=== PATIENT | male | born 1960 | race Caucasian/White ===

== ENCOUNTER 2018-06-23 07:53 | Day surgery (SDC) | payer MEDICAID ==
[~2018-06-23 07:53] MED LIST: CEFAZOLIN 2 GM/50 ML (PMX) 50 ML IVPB; DEXAMETHASONE 4 MG/ML 1 ML INJ; LIDOCAINE 2% (SDV) 5 ML INJ; ONDANSETRON 4 MG INJ; ROCURONIUM 50 MG INJ
[2018-06-23] MEDS: SOD CHLORIDE 0.9% 1,000 ML IV (10:45)
[2018-06-23] MEDS: BUPIVACAINE 0.25% (MPF) 30 ML INJ (12:37)
[2018-06-23] MEDS: POLYMYXIN/BACITRACIN 1L IRRIG (12:38)
[2018-06-23] MEDS ORDERED: SUGAMMADEX SODIUM 200 MG/2 ML VIAL IV (12:57)
[2018-06-23] MEDS ORDERED: ROCURONIUM 50 MG INJ (12:57)
[2018-06-23] MEDS ORDERED: CEFAZOLIN 1 GM INJ (12:57)
[2018-06-23] MEDS ORDERED: PROPOFOL 20 ML (12:57)
[2018-06-23] MEDS: MEPERIDINE 25 MG INJ IV (13:25)
[2018-06-23] MEDS: HYDROCODONE/APAP (5/325) TAB PO (13:29)
[2018-06-23] MEDS ORDERED: ONDANSETRON 4 MG INJ IV (13:30)
[2018-06-23] MEDS ORDERED: EPHEDrine SULFATE 50 MG/5 ML SYG IV (13:30)
[2018-06-23] MEDS ORDERED: ALBUTEROL 0.083% (NEB) 2.5 MG/3 ML AMP HHN (13:30)
[2018-06-23] MEDS ORDERED: LABETALOL HCL 20MG INJ IV (13:30)
[2018-06-23] MEDS ORDERED: METOCLOPRAMIDE 10 MG INJ IV (13:30)
[2018-06-23] MEDS ORDERED: MIDAZOLAM 1 MG/ML 2 ML INJ IV (13:30)
[2018-06-23] MEDS ORDERED: KETOROLAC 30 MG INJ IV (13:30)
[2018-06-23] MEDS ORDERED: FENTAnyl 50 MCG/ML VIAL IV ×3 (13:30)
[2018-06-23] MEDS ORDERED: OXYCODONE/ACETAMINOPHEN (5/325) TAB PO ×2 (13:30)
[2018-06-23] MEDS ORDERED: HYDROmorphONE 1 MG/5 ML IV SYRINGE IV ×3 (13:30)
[2018-06-23] MEDS ORDERED: DIPHENHYDRAMINE 50 MG INJ IV (13:30)
[2018-06-23] MEDS ORDERED: hydrALAzine 20 MG INJ IV (13:30)
== END 2018-06-23 14:52 | disposition home or self-care (01) ==
LOC: SDS 07:53
DX: K40.30 Unilateral inguinal hernia, with obstruction, without gangrene, not specified as recurrent (principal); E11.9 Type 2 diabetes mellitus without complications
CPT/HCPCS: 49507; 82962

== ENCOUNTER 2018-09-29 16:17 | Inpatient (IN) | payer MEDICAID ==
[2018-09-29] MEDS: SOD CHLORIDE 0.9% 1,000 ML IV (16:50)
[2018-09-29 16:53] LABS: ADD MAN DIFF? NO
[2018-09-29 16:57] LABS: BASOPHIL # 0.1 10^3/ul (0.0-0.1); BASOPHILS % 0.9 % (0.0-2.0); EOSINOPHILS # 0.3 10^3/ul (0.0-0.5); EOSINOPHILS % 3.5 % (0.0-7.0); HEMATOCRIT 48.2 % (42.0-52.0); HEMOGLOBIN 16.6 g/dl (14.0-18.0); LYMPHOCYTES # 3.7 10^3/ul (0.8-2.9); LYMPHOCYTES % 40.2 % (15.0-51.0); MEAN CORPUSCULAR HEMOGLOBIN 30.4 pg (29.0-33.0); MEAN CORPUSCULAR HGB CONC 34.4 g/dl (32.0-37.0); MEAN CORPUSCULAR VOLUME 88.3 fl (82.0-101.0); MEAN PLATELET VOLUME 11.7 fl (7.4-10.4); MONOCYTE # 0.7 10^3/ul (0.3-0.9); MONOCYTES % 7.3 % (0.0-11.0); NEUTROPHIL # 4.4 10^3/ul (1.6-7.5); NEUTROPHILS % 47.9 % (39.0-77.0); PLATELET COUNT 160 10^3/UL (140-415); RED BLOOD COUNT 5.46 10^6/ul (4.70-6.10)
[2018-09-29 16:57] LABS: WHITE BLOOD COUNT 9.1 10^3/ul (4.8-10.8)
[2018-09-29 17:14] LABS: ANION GAP 11 (5-13); BLOOD UREA NITROGEN 11 mg/dl (7-20); CALCIUM 9.7 mg/dl (8.4-10.2); CARBON DIOXIDE 25 mmol/L (21-31); CHLORIDE 104 mmol/L (97-110); CHOL/HDL RATIO 5.3 RATIO; CHOLESTEROL 247 mg/dl (100-200); CREATINE KINASE 59 IU/L (23-200); CREATININE 0.87 mg/dl (0.61-1.24); Estimated GFR > 60 mL/min (>60); GLUCOSE 206 mg/dl (70-220); HDL CHOLESTEROL 46 mg/dl (30-78); LDL CHOLESTEROL,CALCULATED 157 mg/dl; POTASSIUM 4.3 mmol/L (3.5-5.1); SODIUM 140 mmol/L (135-144); TRIGLYCERIDES 220 mg/dl (0-149)
[2018-09-29 17:15] LABS: ETHANOL < 10.0 mg/dl (0-0)
[2018-09-29 17:16] LABS: INR 0.91; PROTIME 12.3 Sec (11.9-14.9)
[2018-09-29 17:17] LABS: PARTIAL THROMBOPLASTIN TIME 24.1 Sec (23.0-35.0)
[2018-09-29 17:25] LABS: CK INDEX 0.5; CK-MB 0.29 ng/ml (0.0-2.4); TROPONIN-I < 0.012 ng/ml (0.000-0.120)
[2018-09-29] MEDS ORDERED: ACETAMINOPHEN 325 MG TAB PO (17:30)
[2018-09-29] MEDS ORDERED: ONDANSETRON 4 MG INJ IV (17:30)
[2018-09-29] MEDS: ASPIRIN 325 MG TAB PO (17:39)
[2018-09-29 17:49] LABS: ADD UMIC NO; UR ASCORBIC ACID NEGATIVE (NEGATIVE); UR BILIRUBIN (Dip) NEGATIVE (NEGATIVE); UR BLOOD (Dip) NEGATIVE (NEGATIVE); UR CLARITY CLEAR (CLEAR); UR COLOR COLORLESS (YELLOW); UR GLUCOSE (Dip) 2+ mg/dL (NEGATIVE); UR KETONES (Dip) NEGATIVE (NEGATIVE); UR LEUKOCYTE ESTERASE (Dip) NEGATIVE Leu/ul (NEGATIVE); UR NITRITE (Dip) NEGATIVE (NEGATIVE); UR SPECIFIC GRAVITY (Dip) 1.008 (1.003-1.030); UR TOTAL PROTEIN (Dip) NEGATIVE (NEGATIVE); UR UROBILINOGEN (Dip) NEGATIVE (NEGATIVE)
[2018-09-29 18:15] LABS: AMPHETAMINE/METHAMPHETAMINE Negative (NEGATIVE); BARBITURATES Negative (NEGATIVE); BENZODIAZEPINES Negative (NEGATIVE); CANNABINOIDS Negative (NEGATIVE); COCAINE Negative (NEGATIVE); OPIATES Negative (NEGATIVE)
[2018-09-29] MEDS ORDERED: GLUCOSE GEL 15 GRAM TUBE BUCCAL (19:00)
[2018-09-29] MEDS ORDERED: GLUCAGON 1 MG INJ IM (19:00)
[2018-09-29] MEDS ORDERED: DEXTROSE 50% 50 ML SYRINGE IV ×2 (19:00)
[2018-09-29] MEDS ORDERED: NACL 0.9% 3 ML SYG IV (19:00)
[2018-09-29] MEDS ORDERED: GLUCOSE GEL 15 GRAM TUBE PO ×2 (19:00)
[2018-09-29] MEDS: INSULIN ASPART [NOVOLOG] 3 ML PEN SC ×2 (19:47→20:03)
[2018-09-29] MEDS: INSULIN GLARGINE [LANTus] (100 UNITS/ML) SYG SC (20:59)
[2018-09-29 21:23] LABS: LACTIC ACID 2.2 mmol/L (0.5-2.0)
[2018-09-29] MEDS: SOD CHLORIDE 0.9% 500 ML IV (21:51)
[2018-09-30 04:09] LABS: HEMOGLOBIN A1C 5.9 % (0-5.9)
[2018-09-30 04:34] LABS: LACTIC ACID 1.7 mmol/L (0.5-2.0)
[2018-09-30] MEDS: INSULIN ASPART [NOVOLOG] 3 ML PEN SC ×4 (08:00→21:00)
[2018-09-30] MEDS: INSULIN GLARGINE [LANTus] (100 UNITS/ML) SYG SC (21:11)
[2018-10-01] MEDS: INSULIN ASPART [NOVOLOG] 3 ML PEN SC ×2 (08:00→12:00)
[2018-10-01] MEDS: ASPIRIN (EC) 325 MG TAB PO (08:00)
[2018-10-01] MEDS: IBUPROFEN 600 MG TAB PO (11:28)
[2018-10-01] MEDS ORDERED: ATORVASTATIN 80 MG TAB PO (21:00)
[2018-10-02] MEDS ORDERED: ASPIRIN (EC) 81 MG TAB PO (09:00)
== END 2018-10-01 14:40 | disposition home or self-care (01) | DRG 72 ==
LOC: E/R 16:17 → 6WM 17:27
PROVIDERS: Internal Medicine
DX: G45.4 Transient global amnesia (principal); E11.9 Type 2 diabetes mellitus without complications
CPT/HCPCS: 36415; 70450; 71045; 72020; 80048; 80061; 80307; 81003; 82550; 82553; 82962; 83036; 83605; 84443; 84484; 85025; 85610; 85730; 87040; 87086; 93005; 93306; 93880; 95819; 99291-25

== ENCOUNTER 2019-01-22 13:16 | Emergency (ER) | payer MEDICAID ==
[2019-01-22] MEDS: DIAZEPAM 5 MG TAB PO ×2 (16:08→17:58)
[2019-01-22] MEDS: MECLIZINE 12.5 MG TAB PO ×2 (16:08→17:57)
== END 2019-01-22 20:39 | disposition home or self-care (01) ==
LOC: E/R 13:16
DX: H65.01 Acute serous otitis media, right ear (principal); E11.9 Type 2 diabetes mellitus without complications; Z79.84 Long term (current) use of oral hypoglycemic drugs
CPT/HCPCS: 70450; 99284-25